=== PATIENT | female | born 1970 | race Caucasian/White ===

== ENCOUNTER → 2023-03-23 12:33 | Outpatient (BNVA) | payer OTHER, SELFPAY | PROVIDERS: Visit Provider Physician Assistant | DX: Z13.89 Encounter for screening for other disorder (principal) | CPT/HCPCS: 99203 ==

== ENCOUNTER → 2023-03-30 12:53 | Outpatient (BNVA) | payer OTHER, SELFPAY | PROVIDERS: Visit Provider Physician Assistant | DX: Z13.89 Encounter for screening for other disorder (principal) | CPT/HCPCS: 99213 ==

== ENCOUNTER → 2023-04-13 13:11 | Outpatient (BNVA) | payer OTHER, SELFPAY | PROVIDERS: PCP Internal Medicine; Visit Provider Physician Assistant | DX: Z13.89 Encounter for screening for other disorder (principal) | CPT/HCPCS: 99213 ==

== ENCOUNTER 2023-05-25 08:00 | Outpatient (RCR) | payer OTHER, SELFPAY ==
--- NOTE | 2023-04-13 15:25 | MHC.PT.EP ---
[facility] [place] Office [place] Office [place] Office [address] Bessie Oneil [address] [phone] F: [phone] F: [phone] F: [phone] F: [phone] Physical Therapy Plan of Care Date of Evaluation: Date of Surgery: Diagnosis: LEFT HAMSTRING TEAR Assessment: 52 YO FEMALE REF TO PT FOR LEFT HAMSTRING TEAR SUSTAINED IN A FALL ON 03/23/23 WHILE AT WORK. SHE IS EMPLOYED FULL-TIME IN THE [employer] [facility] [employer]. HER LEFT THIGH CONTUSION IS FADING AND THERE IS TENDERNESS IN Lt PES ANSERINE AND MID SEMIMEMBRANOSUS MM BELLY. OBJECTIVE FINDINGS: MILD Lt LE ROM DEFICITS, DECR STRENGTH IN Lt GLUTE COMPLEX/ LUMBOPELVIC , (+) LLI , AND RESOLVING SORENESS IN HER LEFT THIGH. FUNCTIONALLY, THE Pt IS LIMITED W SQUATTING, PROLONGED WALKING, SITTING -> STAND AND MVMT, STAIR NAVIGATION, AND MORE PHYSOCALLY DEMANDING ADLs. Pt WOULD BENEFIT FROM PT TO ADDRESS THE ABOVE FINDINGS, DEV A HEP, AND PAIN MGMT/ SELF- SX MGMT TECHN. Frequency and Duration: The patient will be seen 2 x WK x 5 WKS Short Term Goals: *Pt'S LEFT HS DISCOMFORT DECR TO 2-3/10 W GENERAL ADLs *INITIATE HEP-> MONITOR LLI EFFECT ON Lt HS *INCREASE LEFT GLUTE STRENGTH *Pt DEMON PROPER FUNCT SQUAT MECH/ BODY MECH SIM W ADLs Group Home Goals: *Pt WILL IMPROVE LUMBOPELVIC/ Lt LE STRENGTH BY 1 GRADE *Pt RESUME AT PLOF EVIDENT W IMPROVED LEFI SCORE (AT EVAL 46/80 ) *Pt INDEP W PROGR HEP AND SELF-SX MGMT TECHN Treatment Plan: Modalities to reduce pain, spasms and effusion. Manual therapy to restore motion and function. Therapeutic exercise to improve strength and flexibility. Neuromuscular re-education for posture and balance. Therapeutic activities to return to functional activities of daily living. Electronically signed by: ANATOLIY MAYNARD,PT Please sign and return to therapist. Thank you for your referral.
--- NOTE | 2023-05-25 09:00 | MHC.PT.DC ---
[facility] [place] Office [place] Office [place] Office [address] Bessie Oneil 140 [facility] [phone] F: [phone] F: [phone] F: [phone] F: [phone] Physical Therapy Discharge Report Diagnosis: LEFT HAMSTRING TEAR Date of Surgery: Date of Evaluation: 04/13/23 Date of Discharge: 05/25/23 Treatments to Date: 8 Cancellations to Date: 0 No Shows to Date: 0 Discharge Status: Achieved Goals Improved Function Independent with HEP Discharge Summary: THE Pt HAS PROGRESSED NICELY IN PT- SHE HAS BEEN ABLE TO RESUME HER REG ADLs AND WORK TASKS WITHOUT LIMITING PAIN OR SYMPTOMS. SHE IS MOTIVATED, INDEP, AND COMPLIANT W HER PROGRESSIVE HEP- SHE HAS MET HER PT GOALS AND IS READY FOR D/C THIS DATE W HEP. HER LEFI TODAY AT D/C IS 76/80, AT EVAL 46/80. Electronically signed by: ANATOLIY MAYNARD, PT Please sign and return to therapist. Thank you for your referral.
== END 2023-05-25 09:01 | disposition home or self-care (01) ==
LOC: HO.PT 08:00
PROVIDERS: PCP Internal Medicine; Visit Provider Physician Assistant
DX: S76.912D Strain of unspecified muscles, fascia and tendons at thigh level, left thigh, subsequent encounter (principal)
CPT/HCPCS: 97035; 97110; 97140; 97162